=== PATIENT | male | born 1995 | race Caucasian/White ===

== ENCOUNTER → 2018-08-01 | Outpatient (CLI) | payer OTHER | END | disposition home or self-care (01) | LOC: LAB 14:45 | PROVIDERS: ATTEND Nurse Practitioner Family | DX: Z20.9 Contact with and (suspected) exposure to unspecified communicable disease (principal) | CPT/HCPCS: 36415; 86706; 86735; 86762; 86765; 86787 ==

== ENCOUNTER 2021-07-28 09:14 | Emergency (ER) | payer OTHER ==
[~2021-07-28] VITALS: Ht 175.3 cm; Wt 108.9 kg
[2021-07-28 09:18] VITALS: BP 135/76
== END 2021-07-28 09:48 | disposition left against medical advice (07) ==
LOC: ER 09:14
DX: M54.9 Dorsalgia, unspecified (principal); Z53.21 Procedure and treatment not carried out due to patient leaving prior to being seen by health care provider